=== PATIENT | female | born 1965 | race Caucasian/White ===

== ENCOUNTER 2021-10-15 18:11 | Emergency (ER) | payer OTHER, SELFPAY ==
[2021-10-15 18:32] VITALS: BP 135/90; PULSE 71; RESP 18; TEMP 36.2; O2SAT 100; BMI 37.3
--- NOTE | 2021-10-15 18:39 | ED.ABDPAIN ---
HPI - Abdominal Pain General Chief Complaint: Abdominal Pain Stated Complaint: Thinks Hernia, Near Naval Time Seen by Provider: 10/15/21 18:28 Source: patient Mode of arrival: Ambulatory Limitations: no limitations History of Present Illness HPI narrative: This is a 56-year-old female comes emergency department with complaint of abdominal pain. Patient states last several days she has had pain just to the right midline not lower and not upper. She states she noticed while palpating over the umbilical area that she had a lump and it was painful. She has not had fevers. No nausea or vomiting. No GI issues. She has had normal bowel movements, no issues with diarrhea constipation. Normal flatus. Normal urinary symptoms. She has had a gastric bypass, tubal ligation, with prior laparoscopic surgery. She is allergic to NSAIDs and has anaphylaxis. She takes omeprazole daily for Cardenas's esophagitis. Related Data Previous Rx's Medication Instructions Recorded benzonatate 100 mg capsule 100 mg PO QID PRN #10 cap 10/15/21 hydrocodone 5 mg-acetaminophen 325 1 tab PO Q6H PRN #10 tab 10/15/21 mg tablet Allergies Allergy/AdvReac Type Severity Reaction Status Date / Time NSAIDS (Non-Steroidal Allergy Verified 10/15/21 18:31 Anti-Inflamma Review of Systems Review of Systems ROS Unobtainable: All systems reviewed & are unremarkable except as noted in HPI and below Patient History Social History Smoking Status: Never smoker Smoking Status: Never smoker alcohol intake frequency: holidays/special occasions only Substance Use Type: does not use Exam Narrative Exam Narrative: GENERAL: Alert and oriented x three, well-nourished female mild distress. HEENT: Head normocephalic, atraumatic, EOMI, pupils reactive, face symmetric, moist mucous membranes NECK: Supple, full range of motion CARDIOVASCULAR: Regular rate and rhythm without murmurs, rubs or gallops. RESPIRATORY: Breath sounds equal bilaterally, no wheezes rales or rhonchi. ABDOMEN: Soft, mild tenderness right mid, patient has a small hernia that is not reducible at the 3 o'clock position. It is soft mildly tender to touch. Normoactive bowel sounds all 4 quadrants. No guarding or rebound, rigidity, no mass : No CVA tenderness EXTREMITIES: Normal range of motion, no clubbing or edema. Neurovascularly intact NEUROLOGICAL: Cranial nerves II through XII grossly intact. Moving all extremities SKIN: Warm, dry, no petechiae, no rashes or lesions. Initial Vital Signs Initial Vital Signs: Vital Signs Temperature 97.2 F L 10/15/21 18:32 Pulse Rate 71 10/15/21 18:32 Respiratory Rate 18 10/15/21 18:32 Blood Pressure 135/90 10/15/21 18:32 Pulse Oximetry 100 10/15/21 18:32 Course Orders Ordered: ED Orders 10/15/21 18:54 XR abdomen min 2V Stat Vital Signs Vital signs: Vital Signs - 8 hr 10/15/21 18:32 Temperature 97.2 F L Pulse Rate 71 Respiratory Rate 18 Blood Pressure 135/90 Pulse Oximetry 100 MDM - Abdominal Pain Imaging Data Abdominal x-ray: Radiologist's Impression: Launch?[address] [address] XRay Report Signed Patient: Tori Mendoza MR#: [id number] : 1965 Acct:[id number] Age/Sex: 56 / F Date of Service: 10/15/21 Loc: ED Accession Number: [id number] ?? Procedure: XR abdomen min 2V Ordering Provider: Shalini Cruz D.O. PROCEDURE:? XR ABDOMEN MIN 2V ? INDICATIONS:? concern for umbilical hernia ? TECHNIQUE:? 2 views of the abdomen were acquired.? ? COMPARISON:? None. ? FINDINGS:? Surgical changes and devices:? None.? ? Bowel:? No pneumoperitoneum.? Nonspecific bowel gas pattern.? ? Soft tissues:? No masses; visualized solid organ contours appear normal in size.? No suspicious abdominal calcifications.? ? Bones:? No suspicious bony abnormalities.? ? IMPRESSION:? No significant abnormality. ? ? Dictated by: Joshua Lopez M.D. on 10/15/2021 at 19:26 ? ? Approved by: Joshua Lopez M.D. on 10/15/2021 at 19:27?? [facility] Narrative Medical decision making narrative: After discussed with patient attempted reduction here in the department unable to reduce easily. With patient having symptoms for several days we discussed obtaining, labs and CT imaging workup verses x-ray and if no signs of obstruction follow-up with General surgery for repair. Patient elects the latter. Suspected that she has likely hernia with fat and less likely to have bowel as she has not had any other GI symptoms, patient is aware of risk vs benefits. X-Ray imaging does not show any obstructive pattern with air through to the rectum. Patient and I discussed strict return precautions. Discharge Plan Departure Patient Disposition: Home Clinical Impression: Abdominal hernia Instructions: Abdominal Hernia Activity Restrictions/Additional Instructions: Follow up with General surgery, call first thing Monday morning to set up an appointment. You do have hernia just to the right of your umbilical region. You may take Franklin 1 tablet every 6 hours as needed for pain. This medication can make you sleepy do not drive, perform hazardous activities or make any major decisions while taking it. This medication will make you constipated please take a stool softener once to twice daily until stools are soft and regular. Prescription sent to [facility] in [place]. Please return for worsening abdominal pain, fevers greater 100.4 F, vomiting, for having constipation, not having bowel movements, no flatus or other new or concerning symptoms. Prescriptions: New hydrocodone-acetaminophen 5-325 mg tablet 1 tab PO Q6H PRN (Reason: pain) Qty: 10 0RF benzonatate 100 mg capsule 100 mg PO QID PRN (Reason: cough) Qty: 10 0RF Referrals: Cami Varela ARNP [Primary Care Provider] - Juan Fajardo MD [Physician] -
--- NOTE | 2021-10-15 18:54 | DI.RAD.S_ITS ---
PROCEDURE: XR ABDOMEN MIN 2V INDICATIONS: concern for umbilical hernia TECHNIQUE: 2 views of the abdomen were acquired. COMPARISON: None. FINDINGS: Surgical changes and devices: None. Bowel: No pneumoperitoneum. Nonspecific bowel gas pattern. Soft tissues: No masses; visualized solid organ contours appear normal in size. No suspicious abdominal calcifications. Bones: No suspicious bony abnormalities. IMPRESSION: No significant abnormality. Dictated by: Joshua Lopez M.D. on 10/15/2021 at 19:26 Approved by: Joshua Lopez M.D. on 10/15/2021 at 19:27
== END 2021-10-15 19:51 | disposition home or self-care (01) ==
PROVIDERS: Emergency Provider Emergency Medicine; PCP Nurse Practitioner
DX: K46.9 Unspecified abdominal hernia without obstruction or gangrene (principal); Z88.6 Allergy status to analgesic agent
CPT/HCPCS: 74019; 99283

== ENCOUNTER 2022-05-27 07:41 | Emergency (ER) | payer OTHER, SELFPAY ==
[2022-05-27 07:52] VITALS: BP 129/79; PULSE 67; RESP 20; TEMP 36.5; O2SAT 97; BMI 37.1
--- NOTE | 2022-05-27 07:57 | DI.RAD.S_ITS ---
PROCEDURE: XR KNEE LT 3V INDICATIONS: pain TECHNIQUE: 3 views of the knee were acquired. COMPARISON: None. FINDINGS: Bones: No fractures or dislocations. No suspicious bony lesions. Mild medial and lateral compartment narrowing and patellofemoral compartment spurring. Soft tissues: No joint effusion. No suspicious soft tissue calcifications. IMPRESSION: 1. No acute osseous abnormality. 2. Degenerative changes of the knee. Dictated by: Papito Jackson M.D. on 05/27/2022 at 8:20 Approved by: Papito Jackson M.D. on 05/27/2022 at 8:23
--- NOTE | 2022-05-27 07:57 | DI.RAD.S_ITS ---
PROCEDURE: XR ANKLE LT MIN 3V INDICATIONS: pain TECHNIQUE: 3 views of the ankle were acquired. COMPARISON: None. FINDINGS: Bones: No definite fractures or dislocations. Ankle mortise is normally aligned. Degenerative changes of the talonavicular joint. A plantar calcaneal spur is present. Soft tissues: A tibiotalar joint effusion is present. Achilles tendon appears normal. IMPRESSION: 1. No acute fracture visualized. If symptoms persist, follow-up radiographs and/or CT may be helpful for further evaluation. 2. A tibiotalar joint effusion is present. Dictated by: Papito Jackson M.D. on 05/27/2022 at 8:23 Approved by: Papito Jackson M.D. on 05/27/2022 at 8:30
--- NOTE | 2022-05-27 09:53 | ED_ITS ---
HPI - Extremity Injury (Lower) General Chief Complaint: Extremity Injury, Lower Stated Complaint: left ankle pain Time Seen by Provider: 05/27/22 09:51 Source: patient Mode of arrival: Family Vehicle History of Present Illness HPI Narrative: 56-year-old female with complaint of left ankle pain and knee pain. Patient states she helped friends pack and move about a week ago she started developing discomfort in her left ankle particularly on the medial side under the medial malleolus and a little bit over the talus. She has not had any significant swelling, no bruising or ecchymosis. She does not recall any specific trauma but she states she typically isn't quite that active. She is had a little bit of left knee discomfort. She has chronic knee issues after an injury remotely. She has not had any swelling, skin changes. No weakness or numbness in her extremities. She is occasionally had some discomfort radiating down her from her back but not persistently. She denies any other symptoms. No fevers or chills. No cough, cold or congestion, no chest pain or shortness of breath. No GI or urinary symptoms. Patient states that she is allergic to ibuprofen she does not tolerate NSAIDs. She is on medication for migraine. She does tolerate Tylenol. Patient has not been as active at work she sits at a desk normally. She came to be evaluated it has been persisting. Related Data Previous Rx's Medication Instructions Recorded benzonatate 100 mg capsule 100 mg PO QID PRN cough #10 caps 10/15/21 hydrocodone 5 mg-acetaminophen 325 1 tab PO Q6H PRN pain #10 tabs 10/15/21 mg tablet Allergies Allergy/AdvReac Type Severity Reaction Status Date / Time NSAIDS (Non-Steroidal Allergy Anaphylaxis Verified 05/27/22 07:52 Anti-Inflamma Review of Systems Review of Systems ROS Unobtainable: All systems reviewed & are unremarkable except as noted in HPI and below Patient History Social History Smoking Status: Never smoker Smoking Status: Never smoker alcohol intake frequency: holidays/special occasions only Substance Use Type: does not use Exam Narrative Exam Narrative: GENERAL: Alert and oriented x three, obese female in mild distress. HEENT: Head normocephalic, atraumatic, EOMI, pupils reactive, face symmetric, moist mucous membranes NECK: Supple, full range of motion ABDOMEN: Soft, nontender. Normoactive bowel sounds all 4 quadrants. No guarding or rebound, rigidity, no mass BACK: No cervical, thoracic or lumbar vertebral point tenderness. Patient has normal range of motion. Patient's gait is [antalgic/normal]. Rectal exam is deferred. Muscle strength is 5/5 in lower extremities,Dorsalis pedis and tibialis pulses are 2+ and lower extremities. Sensation is intact in the lower extremities. Patient does not have any distinct bony tenderness. No joint laxity at the knee or ankle. No ecchymosis, no swelling, erythema or other skin changes. : No CVA tenderness EXTREMITIES: Normal range of motion. Neurovascularly intact NEUROLOGICAL: Cranial nerves II through XII grossly intact. Moving all extremities SKIN: Warm, dry, no petechiae, no rashes or lesions. Initial Vital Signs Initial Vital Signs: Vital Signs Temperature 97.7 F 05/27/22 07:52 Pulse Rate 67 05/27/22 07:52 Respiratory Rate 20 05/27/22 07:52 Blood Pressure 129/79 05/27/22 07:52 Pulse Oximetry 97 05/27/22 07:52 Oxygen Delivery Method 05/27/22 07:52 Course Orders Ordered: ED Orders 05/27/22 07:57 XR ankle LT min 3V Stat XR knee LT 3V Stat Vital Signs Vital signs: Vital Signs - 8 hr 05/27/22 07:52 Temperature 97.7 F Pulse Rate 67 Respiratory Rate 20 Blood Pressure 129/79 Pulse Oximetry 97 Oxygen Delivery Method Room Air MDM - Extremity Injury (Lower) Imaging Data Extremity x-ray #1: Radiologist's Impression: Close Knee X-Ray (Signed) Papito Jackson - 05/27/22 Ankle X-Ray (Signed) Papito Jackson - 05/27/22 Abdomen X-Ray (Signed) Joshua Lopez - 10/15/21 Launch?[address] [address] XRay Report Signed Patient: Tori Mendoza MR#: [id number] : 1965 Acct:[id number] Age/Sex: 56 / F Date of Service: 05/27/22 Loc: ED Accession Number: [id number] ?? Procedure: XR knee LT 3V Ordering Provider: Shalini Cruz D.O. PROCEDURE:? XR KNEE LT 3V ? INDICATIONS:? pain ? TECHNIQUE:? 3 views of the knee were acquired.? ? COMPARISON:? None. ? FINDINGS:? ? Bones:? No fractures or dislocations.? No suspicious bony lesions.? Mild medial and lateral compartment narrowing and patellofemoral compartment spurring. ? Soft tissues:? No joint effusion.? No suspicious soft tissue calcifications.? ? ? IMPRESSION:? 1.? No acute osseous abnormality. 2. Degenerative changes of the knee.? ? ? Dictated by: Papito Jackson M.D. on 05/27/2022 at 8:20 ? ? Approved by: Papito Jackson M.D. on 05/27/2022 at 8:23?? Extremity x-ray #2: Radiologist's Impression: Close Knee X-Ray (Signed) Papito Jackson - 05/27/22 Ankle X-Ray (Signed) Papito Jackson - 05/27/22 Abdomen X-Ray (Signed) Joshua Lopez - 10/15/21 Launch?[place] [address] XRay Report Signed Patient: Tori Mendoza MR#: [id number] : 1965 Acct:[id number] Age/Sex: 56 / F Date of Service: 05/27/22 Loc: Accession Number: [id number] ?? Procedure: XR ankle LT min 3V Ordering Provider: Shalini Cruz D.O. PROCEDURE:? XR ANKLE LT MIN 3V ? INDICATIONS:? pain ? TECHNIQUE:? 3 views of the ankle were acquired.? ? COMPARISON:? None. ? FINDINGS:? ? Bones:? No definite fractures or dislocations.? Ankle mortise is normally aligned.? Degenerative changes of the talonavicular joint.? A plantar calcaneal spur is present. ? Soft tissues:? A tibiotalar joint effusion is present.? Achilles tendon appears normal.? ? ? IMPRESSION:? 1. No acute fracture visualized.? If symptoms persist, follow-up radiographs and/or CT may be helpful for further evaluation. 2. A tibiotalar joint effusion is present.? Dictated by: Papito Jackson M.D. on 05/27/2022 at 8:23 ? ? Approved by: Papito Jackson M.D. on 05/27/2022 at 8:30?? MDM Narrative Medical decision making narrative: This is a 56-year-old female who presents with complaint of left ankle pain and mild left knee pain. Patient does not have any obvious changes examination she describes discomfort wrapping around the medial malleolus consistent more with a ligamentous injury. No obvious swelling, ecchymosis, erythema or changes consistent with infection her major traumatic injury. Knee x-ray shows no acute change, ankle x-ray shows some talotibial effusion. Suspect patient has irritated the area secondary to repetitive use last week. She does not tolerate NSAIDs plan for Tylenol, Sen wrap she weight bears without major issue. Patient feels comfortable with this plan. Discharge Plan Departure Patient Disposition: Home Clinical Impression: Ankle sprain and strain, Knee pain, left Instructions: Ankle Sprain Activity Restrictions/Additional Instructions: Your imaging today shows a small amount of effusion at the tibiotalar joint. You may continue with Tylenol up to a 1000 mg every 6 hours as needed for pain. Splint Care: Keep splint clean and dry. Elevated affected body part to decrease swelling. OK to use ice pack on the affected body part. Use for 15-20 minutes each time, for 5-6x per day. If you develop worsening pain, numbness, tingling, discoloration of the affected body part, loosen the SEN wrap, and either see your doctor for an urgent re-assessment, or return to the Emergency Department. Return to the Emergency Department for any new or worsening symptoms. Prescriptions: No Action hydrocodone-acetaminophen 5-325 mg tablet 1 tab PO Q6H PRN (Reason: pain) Qty: 10 0RF benzonatate 100 mg capsule 100 mg PO QID PRN (Reason: cough) Qty: 10 0RF Referrals: Cami Varela ARNP [Primary Care Provider] - Stand Alone Forms: Work Release Note Visit Report Forms: Patient Portal/API
== END 2022-05-27 10:23 | disposition home or self-care (01) ==
PROVIDERS: Emergency Provider Emergency Medicine; PCP Nurse Practitioner
DX: S93.402A Sprain of unspecified ligament of left ankle, initial encounter (principal); S96.912A Strain of unspecified muscle and tendon at ankle and foot level, left foot, initial encounter; M25.562 Pain in left knee
CPT/HCPCS: 73562; 73610; 99283

== ENCOUNTER 2023-01-30 19:04 | Emergency (ER) | payer OTHER, SELFPAY ==
[2023-01-30 19:16] VITALS: BP 133/82; PULSE 87; RESP 18; TEMP 38.3; O2SAT 96; BMI 39.6
--- NOTE | 2023-01-30 19:20 | DI.RAD.S_ITS ---
PROCEDURE: XR CHEST 2V INDICATIONS: cough, fever TECHNIQUE: 2 views of the chest were acquired. COMPARISON: None. FINDINGS: Surgical changes and devices: None. Lungs and pleura: Lungs are clear. No pleural effusions or pneumothorax. Mediastinum: Mediastinal contours are normal. Heart size is normal. Bones and chest wall: No suspicious bony abnormalities. Soft tissues appear unremarkable. IMPRESSION: 1. No acute cardiopulmonary disease. Dictated by: Braden Flaherty M.D. on 01/30/2023 at 20:29 Approved by: Braden Flaherty M.D. on 01/30/2023 at 20:29
[2023-01-30 20:40] LABS: Adenovirus Not Detected (Not Detect); B. parapertussis Not Detected (Not Detecte); Bordetella pertussis Not Detected (Not Detecte); Chlamydophila pneumoniae Not Detected (Not Detect); Coronavirus 229E Not Detected (Not Detect); Coronavirus HKU1 Not Detected (Not Detect); Coronavirus NL 63 Not Detected (Not Detect); Coronavirus OC43 Not Detected (Not Detect); Human Metapneumovirus Detected (Not Detect); Human Rhinovirus/Enterovirus Not Detected (Not Detect); Influenza A Not Detected (Not Detect); Influenza B Not Detected (Not Detect); Mycoplasma pneumoniae Not Detected (Not Detect); Parainfluenza Virus 1 Not Detected (Not Detect); Parainfluenza Virus 2 Not Detected (Not Detect); Parainfluenza Virus 3 Not Detected (Not Detect); Parainfluenza Virus 4 Not Detected (Not Detect); Respiratory Syncytial Virus Not Detected (Not Detect); SARS- CoV-2 Not Detected (Not Detecte)
--- NOTE | 2023-01-30 21:30 | PC.NURSE ---
SIMONIZER consult ordered: Pt requires assistance w/ mental health provider and PCP.
[2023-01-30] MEDS: ACETAMINOPHEN/CODEINE SOLN 5 ML SOLUTION PO (21:35)
[2023-01-30 21:44] VITALS: BP 130/80; PULSE 88; RESP 16; TEMP 38.3; O2SAT 99
--- NOTE | 2023-02-01 17:29 | ED_ITS ---
HPI - URI/Sore Throat General Chief Complaint: Upper Respiratory Symptoms Stated Complaint: cough, fever Time Seen by Provider: 01/30/23 19:20 Source: patient Mode of arrival: Ambulatory History of Present Illness HPI Narrative: 57-year-old female nonsmoker presents with various upper respiratory symptoms over the past few days including runny nose, nasal congestion and cough. The cough is nonproductive. She does feel some wheezing and states that with deep breath she does occasionally cough. She denies any production of sputum or blood. She has no chest pain, nausea or vomiting. She does state that her coughing is vigorous and feels like it is pulling at a hernia surgery that was repaired in the fall. Related Data Previous Rx's Medication Instructions Recorded benzonatate 100 mg capsule 100 mg PO QID PRN cough #10 caps 10/15/21 hydrocodone 5 mg-acetaminophen 325 1 tab PO Q6H PRN pain #10 tabs 10/15/21 mg tablet benzonatate 200 mg capsule 200 mg PO BID PRN cough #20 caps 01/30/23 Allergies Allergy/AdvReac Type Severity Reaction Status Date / Time NSAIDS (Non-Steroidal Allergy Anaphylaxis Verified 05/27/22 07:52 Anti-Inflamma Review of Systems Review of Systems Narrative: GENERAL: See HPI HEENT: See HPI RESPIRATORY: See HPI CARDIOVASCULAR: Denies chest pain, palpitations, orthopnea, edema, GASTROINTESTINAL: Denies nausea, vomiting, abdominal pain, diarrhea, constipation, melena. : Denies dysuria, frequency, incontinence, hematuria, urinary retention. MUSCULOSKELETAL: denies weakness, joint pain, or bony pain SKIN: Denies rash, skin lesions, or other NEUROLOGIC: Denies weakness, headache, numbness, change in speech, confusion, seizures, incoordination. PSYCHIATRIC: No concerning psychosocial issues. 12 point review of systems is negative except for those stated above Patient History Social History Smoking Status: Never smoker Smoking Status: Never smoker alcohol intake frequency: holidays/special occasions only Substance Use Type: does not use Exam Narrative Exam Narrative: GENERAL: [57] year old patient appears stated age. Well-developed patient, in mild distress. HEAD: Atraumatic. Normocephalic. EYES: Pupils equal round and reactive. Extraocular motions intact. No scleral icterus. No injection or drainage. ENT: Clear nasal drainage bilaterally, minimal posterior pharyngeal drainage. Throat without erythema, tonsillar hypertrophy or exudate. Airway patent. NECK: Trachea midline. Non tender CARDIOVASCULAR: Regular rate and rhythm without murmurs, gallops, or rubs. RESPIRATORY: Clear to auscultation. Breath sounds equal bilaterally. No wheezes, rales, or rhonchi. GASTROINTESTINAL: Abdomen soft, non-tender, nondistended. EXTREMITIES: No edema or joint tenderness. BACK: Nontender without deformity or crepitance. No flank tenderness. NEURO: AOx3. SKIN: No rash or erythema of visible areas Initial Vital Signs Initial Vital Signs: Vital Signs Temperature 100.9 F H 01/30/23 19:16 Pulse Rate 87 01/30/23 19:16 Respiratory Rate 18 01/30/23 19:16 Blood Pressure 133/82 01/30/23 19:16 Pulse Oximetry 96 01/30/23 19:16 Oxygen Delivery Method Room Air 01/30/23 19:16 Course Orders Ordered: Discontinued Medications Acetaminophen/Codeine Phosphate (Acetaminophen/Codeine Soln 5 Ml Solution) 5 ml PO NOW ONE Stop: 01/30/23 21:20 Last Admin: 01/30/23 21:35 Dose: 5 ml Documented By: OMAYRA MDM - URI/Sore Throat Lab Data Labs: Lab Results 01/30/23 Range/Units 19:29 Chlamy pneumoniae PCR Not detected (Not Detect) Adenovirus (PCR) Not detected (Not Detect) B. pertussis DNA (PCR) Not detected (Not Detecte) B.parapertussis DNA PCR Not detected (Not Detecte) Coronavirus OC43 (PCR) Not detected (Not Detect) Coronavirus HKU1 (PCR) Not detected (Not Detect) Coronavirus 229E (PCR) Not detected (Not Detect) SARS-CoV-2 (PCR) Not detected (Not Detecte) Coronavirus NL63 (PCR) Not detected (Not Detect) Human Metapneumovir PCR Detected H (Not Detect) Influenza Type A (PCR) Not detected (Not Detect) Influenza Type B (PCR) Not detected (Not Detect) M. pneumoniae (PCR) Not detected (Not Detect) Parainfluenza 1 (PCR) Not detected (Not Detect) Parainfluenza 2 (PCR) Not detected (Not Detect) Parainfluenza 3 (PCR) Not detected (Not Detect) Parainfluenza 4 (PCR) Not detected (Not Detect) RSV (PCR) Not detected (Not Detect) Entero/Rhino (PCR) Not detected (Not Detect) MDM Narrative Medical decision making narrative: [57] year old patient presents with upper respiratory symptoms Multiple etiologies for patient's symptoms considered including, but not limited to: [COVID, flu, RSV, other viral source, bacterial pneumonia versus other] Prior Charts reviewed in our EMR Primary Historian: patient Labs reviewed and interpreted by myself: Respiratory panel positive for human metapneumovirus. Imaging reviewed: No acute process Patient's symptoms improved over duration of stay with above-stated therapies. Patient without any noted significant work of breathing, no hypoxemia. Chest x- ray clear. No indication for antibiotics. Return precautions given Findings and discharge diagnosis discussed with patient/family followed by verbalization of understanding Return precautions discussed with patient/family whom verbalize understanding of diagnosis and plan Discharge Plan Departure Patient Disposition: Home Clinical Impression: Human metapneumovirus pneumonia Instructions: Human Metapneumovirus Infection Activity Restrictions/Additional Instructions: *You have been diagnosed with [viral were unremarkable. upper respiratory symptoms associated with human metapneumovirus. Otherwise your respiratory panel and chest x-ray] *What to do: *Please continue to take your regular medications as directed. [x ] New medication prescriptions sent to your pharmacy: [[facility] ] [ ] New medication written as a paper prescription [ ] No new medications given *Please follow up with your primary care provider in 2-3 days, call for an appointment. Let them know you were seen in the Emergency Department and that we ask that you be seen in follow up. We will electronically transmit a record of today's note if your PCP is in our system * as we discussed I have included the contact information for [facility], please call them and let them know that you were seen in the emergency department and we would like you seen in follow-up regarding your sinus problems. *Return to Emergency Department if you should have any new, worsening or co ncerning symptoms, such as [fever greater than 101 F, shaking chills, worsening pain, persistent vomiting or other bothersome symptoms] Prescriptions: New benzonatate 200 mg capsule 200 mg PO BID PRN (Reason: cough) Qty: 20 0RF No Action hydrocodone-acetaminophen 5-325 mg tablet 1 tab PO Q6H PRN (Reason: pain) Qty: 10 0RF benzonatate 100 mg capsule 100 mg PO QID PRN (Reason: cough) Qty: 10 0RF Referrals: Cami Varela ARNP [Primary Care Provider] - Narayan Yancey MD [Physician] - Stand Alone Forms: Patient Portal/API
== END 2023-01-30 21:45 | disposition home or self-care (01) ==
PROVIDERS: Emergency Provider Emergency Medicine; PCP Nurse Practitioner
DX: J12.3 Human metapneumovirus pneumonia (principal); Z20.822 Contact with and (suspected) exposure to COVID-19
CPT/HCPCS: 71046; 87633; 99283

== ENCOUNTER → 2024-10-20 10:02 | Outpatient (CLI) | payer OTHER, SELFPAY | PROVIDERS: PCP Nurse Practitioner; Visit Provider Physician Assistant Medical | DX: R10.9 Unspecified abdominal pain (principal) | CPT/HCPCS: 87086 ==

== ENCOUNTER → 2024-10-20 10:35 | Outpatient (CLI) | payer OTHER, SELFPAY ==
--- NOTE | 2024-10-20 10:41 | DI.RAD.S_ITS ---
PROCEDURE: XR CHEST 2V INDICATIONS: mid low back pain, no trauma, chronic cough. TECHNIQUE: 2 views of the chest were acquired. COMPARISON: [facility], CR, XR CHEST 2V, 01/30/2023, 19:36. FINDINGS: Surgical changes and devices: None. Lungs and pleura: Lungs are clear. No pleural effusions or pneumothorax. Mediastinum: Mediastinal contours are normal. Heart size is normal. Bones and chest wall: No suspicious bony abnormalities. Soft tissues appear unremarkable. IMPRESSION: No acute cardiopulmonary abnormality is seen. Approved by: Opal Azul M.D.,Ph.D. on 10/20/2024 at 11:35
== END ==
LOC: RAD 10:40
PROVIDERS: PCP Nurse Practitioner; Referring Provider Physician Assistant Medical; Visit Provider Physician Assistant Medical
DX: M54.9 Dorsalgia, unspecified (principal); R10.9 Unspecified abdominal pain
CPT/HCPCS: 71046; 87086

== ENCOUNTER 2025-05-06 14:34 | Emergency (ER) | payer OTHER, SELFPAY ==
[2025-05-06] VITALS (13 sets, daily range): BP systolic 114–157; BP diastolic 58–82; PULSE 51–72; RESP 9–21; TEMP 36.6; O2SAT 94–100; BMI 36.7
--- NOTE | 2025-05-06 15:12 | DI.CT.S_ITS ---
PROCEDURE: CT HEAD/BRAIN WO CON INDICATIONS: severe and acute onset vertigo TECHNIQUE: Noncontrast 4.5 mm thick angled axial sections acquired from the foramen magnum to the vertex, with coronal and sagittal reformats. For radiation dose reduction, the following was used: automated exposure control, adjustment of mA and/or kV according to patient size. COMPARISON: None. FINDINGS: Image quality: Diagnostic. CSF spaces: Basal cisterns are patent. No extra-axial fluid collections. Ventricles are normal in size and shape. Brain: No midline shift. No intracranial mass effect or hemorrhage. Aaron- white matter interface is normal. Skull and face: Calvarium and visualized facial bones are intact, without suspicious lesions. Sinuses: Mild mucosal thickening in the maxillary sinuses. The remaining paranasal sinuses and the mastoid air cells are clear. IMPRESSION: No acute intracranial pathology. Approved by: Papito Lees M.D. on 05/06/2025 at 16:04
--- NOTE | 2025-05-06 15:12 | DI.CT.S_ITS ---
PROCEDURE: CT ANGIO HEAD AND NECK INDICATIONS: severe acute vertigo, ? stroke TECHNIQUE: After the administration of intravenous contrast, 1 mm thick sections acquired from the aortic arch through the [place] of [place]. 3-dimensional jcdsvea-jcberxvci-ireucwqamb (MIP) and/or volume rendering reformats were acquired of the central intracranial vasculature and neck separately. For radiation dose reduction, the following was used: automated exposure control, adjustment of mA and/or kV according to patient size. COMPARISON: None. FINDINGS: Image quality: Diagnostic. Cerebral CT Angiogram: Internal carotid arteries: No acute findings. Intracranial ICA are patent with no significant stenosis. No occlusion. No aneurysm. Anterior cerebral arteries: Unremarkable. No significant stenosis. No occlusion. No aneurysm. Middle cerebral arteries: Unremarkable. No significant stenosis. No occlusion. No aneurysm. Posterior cerebral arteries: Unremarkable. No significant stenosis. No occlusion. No aneurysm. Basilar artery: Unremarkable. No significant stenosis. No occlusion. No aneurysm. Vertebral arteries: Unremarkable as visualized. Dural venous sinuses: Unremarkable given phase of enhancement. Other: Arterial phase appearance of the brain parenchyma is unremarkable. Neck CT Angiogram: Internal carotid arteries: Unremarkable. No significant stenosis. No dissection or occlusion. Common carotid arteries: Unremarkable. No significant stenosis. No dissection or occlusion. External carotid arteries: Unremarkable. No occlusion. Vertebral arteries: Unremarkable. No significant stenosis. No dissection or occlusion. Aortic Arch and Mediastinum: Partially visualized aortic arch unremarkable without evidence of aneurysm. Origins of the great vessels unremarkable. Other: Arterial phase soft tissues of the neck and chest are unremarkable. IMPRESSION: No significant intracranial arterial abnormality is seen. No significant abnormality is seen within the arteries of the neck. Any quantitative measurements of stenosis were performed using NASCET criteria. Approved by: Papito Lees M.D. on 05/06/2025 at 16:07
[2025-05-06 15:22] LABS: Add Manual Diff / Slide Review NO; Hematocrit 43.5 % (36-46); Hemoglobin 15.2 g/dL (12.0-16.0); Lymphocytes Absolute Auto 1200 /uL (1100-4500); Mean Corpuscular HGB Conc 34.8 % (30-36); Mean Corpuscular Hemoglobin 32.0 PG (26-34); Mean Corpuscular Volume 92.0 fL (80-100); Platelet Count 277 X10^3/uL (150-400)
[2025-05-06 15:33] LABS: Alanine Aminotransferase 27 IU/L (<35); Albumin 4.5 g/dL (3.5-5.0); Albumin Globulin Ratio 1.2 (1.0-2.8); Alkaline Phosphatase 118 U/L (38-126); Blood Urea Nitrogen 13 mg/dL (7-17); Calcium 9.8 mg/dL (8.4-10.2); Carbon Dioxide 22 mmol/L (22-32); Chloride 104 mmol/L (98-107); Estimated Glomerular Filt Rate > 60 mL/min (>60); Globulin 3.8 g/dL (1.7-4.1); Glucose 140 mg/dL (70-99); HEMOLYSIS 16 (0-50); Potassium 4.3 mmol/L (3.4-5.1); Sodium 135 mmol/L (137-145); Total Protein 8.3 g/dL (6.3-8.2)
[2025-05-06] MEDS: ONDANSETRON 4 MG/2 ML INJ IV (15:35)
[2025-05-06] MEDS: SODIUM CHLORIDE 0.9% 1,000 ML 1000 ML IV (15:40)
[2025-05-06 15:44] LABS: Troponin I < 0.012 ng/mL (0.01-0.034)
--- NOTE | 2025-05-06 17:20 | ED.GENADULT ---
HPI - General Adult General Chief complaint: Dizziness Stated complaint: Nauseated, and dizzy this am, getting worse Time Seen by Provider: 05/06/25 14:40 Source: patient Mode of arrival: Wheelchair History of Present Illness HPI narrative: 59-year-old woman with a history of migraine headache presents with dramatic episode of vertigo, coming in severe waves such that she can not walk when 1 of the waves passes through. She is nauseated but not overtly vomiting. She is not having any nystagmus does not complain of specific headache. No photosensitivity. No recent fevers, no abdominal pain, palpitations or lower extremity edema Related Data Home Medications ?Medication ?Instructions ?Recorded ?Confirmed sumatriptan succinate PO 10/20/24 10/20/24 Previous Rx's ?Medication ?Instructions ?Recorded benzonatate 100 mg capsule 100 mg PO QID PRN cough #10 caps 10/15/21 hydrocodone 5 mg-acetaminophen 325 1 tab PO Q6H PRN pain #10 tabs 10/15/21 mg tablet benzonatate 200 mg capsule 200 mg PO BID PRN cough #20 caps 01/30/23 Allergies Allergy/AdvReac Type Severity Reaction Status Date / Time NSAIDS (Non-Steroidal Allergy Anaphylaxis Verified 05/06/25 14:45 Anti-Inflamma Review of Systems Review of Systems Narrative: Pertinent positive and negative findings as per HPI Patient History Medical History (Updated 05/06/25 @ 18:24 by Diana Fletcher MD) Migraine Smoking Status: Unknown if ever smoked alcohol intake frequency: holidays/special occasions only Exam Initial Vital Signs Initial Vital Signs: Vital Signs Temperature 97.8 F 05/06/25 14:40 Pulse Rate 72 05/06/25 14:40 Respiratory Rate 17 05/06/25 14:40 Blood Pressure 157/82 H 05/06/25 14:40 Pulse Oximetry 100 05/06/25 14:40 Oxygen Delivery Method Room Air 05/06/25 14:40 General: Pale, obviously distressed with waves of severe vertigo that are not positional and not associated with nystagmus HEENT: Moist mucous membranes, normal sclera with reactive pupils, Respiratory: Lungs are clear to auscultation, no wheezing no rales no rhonchi. Full and symmetrical air movement Cardiac: Regular rate and rhythm no murmurs no bruits Abdomen: Soft, nontender, no rebound or guarding, no flank pain Skin: Warm and dry, no rashes Neurologic: Grossly neurologically intact with no obvious asymmetries or abnormalities Extremities: No trauma, well perfused Psych: Cooperative, appropriate insight and affect Course Orders Ordered: ED Orders 05/06/25 14:45 Complete Blood Count AUTO DIFF Stat Comprehensive Metabolic Panel Stat Troponin I Stat 05/06/25 15:12 CT angio head and neck Stat CT head/brain wo con Stat Discontinued Medications Diazepam (Diazepam 10 Mg/2 Ml Syringe) 2 mg IV NOW ONE Stop: 05/06/25 15:11 Last Admin: 05/06/25 15:37 Dose: 2 mg Documented By: TIP Sodium Chloride (Normal Saline 0.9%) 1,000 mls @ 1,000 mls/hr IV BOLUS ONE Stop: 05/06/25 16:09 Last Infusion: 05/06/25 16:49 Dose: Infused Documented By: Admin: 05/06/25 15:40 Dose: 1,000 mls/hr Documented By: TIP Ondansetron HCl (Ondansetron 4 Mg/2 Ml Inj) 4 mg IV NOW ONE Stop: 05/06/25 15:11 Last Admin: 05/06/25 15:35 Dose: 4 mg Documented By: TIP Vital Signs Vital signs: Vital Signs - 8 hr 05/06/25 14:40 Temperature 97.8 F Pulse Rate 72 Respiratory Rate 17 Blood Pressure 157/82 H Pulse Oximetry 100 Oxygen Delivery Method Room Air Medical Decision Making Lab Data 05/06/25 14:45 05/06/25 14:45 Labs: Lab Results 05/06/25 Range/Units 14:45 WBC 6.9 (4.5-11.0) X10^3/uL RBC 4.74 (4.0-5.2) X10^6/uL Hgb 15.2 (12.0-16.0) g/dL Hct 43.5 (36-46) % MCV 92.0 (80-100) fL MCH 32.0 (26-34) PG MCHC 34.8 (30-36) % RDW 13.6 (11.6-14.8) % Plt Count 277 (150-400) X10^3/uL Neut % (Auto) 72.4 (50-75) % Lymph % (Auto) 17.1 L (25-40) % [place] % (Auto) 8.3 (3-14) % Eos % (Auto) 1.5 L (2-4) % Baso % (Auto) 0.7 (0-2) % Neut # (Auto) 5000 (0976-7617) /uL Lymph # (Auto) 1200 (5656-7492) /uL [place] # (Auto) 600 (0-900) /uL Eos # (Auto) 100 (0-450) /uL Baso # (Auto) 0 (0-100) /uL Sodium 135 L (137-145) mmol/L Potassium 4.3 (3.4-5.1) mmol/L Chloride 104 (98-107) mmol/L Carbon Dioxide 22 (22-32) mmol/L BUN 13 (7-17) mg/dL Creatinine 0.79 (0.52-1.04) mg/dL Estimated GFR > 60 (>60) mL/min BUN/Creatinine Ratio 16.5 (6-22) Glucose 140 H (70-99) mg/dL Calcium 9.8 (8.4-10.2) mg/dL Total Bilirubin 0.9 (0.2-1.3) mg/dL AST 39 H (14-36) IU/L ALT 27 (<35) IU/L Alkaline Phosphatase 118 (38-126) U/L Troponin I < 0.012 (0.01-0.034) ng/mL Total Protein 8.3 H (6.3-8.2) g/dL Albumin 4.5 (3.5-5.0) g/dL Globulin 3.8 (1.7-4.1) g/dL Albumin/Globulin Ratio 1.2 (1.0-2.8) MDM Narrative Medical decision making narrative: CC: Severe onset acute vertigo Complicating co-morbidities: Migraine, no fevers, no trauma Data collected from: patient Differential considered: With the severity, stroke, ruptured aneurysm, herald bleed from an aneurysm, complex migraine, meningitis Exam documented above, pertinent findings include: Aside from the waves of vertigo without associated nystagmus exam is otherwise unremarkable Lab Test results independently reviewed as above. Pertinent findings: CBC is reassuring Chemistries are reassuring Imaging studies independently reviewed: CT of the head was unremarkable CT angio of the head and neck with concerns for stroke or bleeding was equally unremarkable Treatments: A L of fluid, 2 mg of diazepam and 4 mg of Zofran Discussion: With the somewhat modified migraine/vertigo treatment her symptoms have actually completely resolved. This makes me suspect that this was likely more complex migraine rather than any vertigo syndrome or stroke or stroke syndrome. Findings reviewed with her in detail including results of her CT scans. She has medication available for migraine and we discussed using that if she has similar episodes of vertigo to see if it influences the findings. At this point there was no indication for life-threatening abnormality, significant infection, reason for additional workup or hospitalization and she is safe for discharge Discharge Plan Departure Patient Disposition: Home Clinical Impression: Vertigo Migraine headache Qualifiers: Status migrainosus presence: without status migrainosus Intractability: not intractable Instructions: DI for Migraine Activity Restrictions/Additional Instructions: Thank you for coming in today With the severity and the acute onset of your symptoms I was concerned for stroke or bleeding inside your brain. The CT scan of your head and the CT angiogram, looking in all blood vessels, were both normal. You are given a L of fluid, 2 mg of diazepam and 4 mg of ondansetron. Somewhat modified migraine cocktail and can sometimes be helpful with acute vertigo. Typically it will completely alleviate the migraine but simply make the vertigo a little better. Because you are so improved I do suspect that this was a complex migraine with unusual presentation and no evidence of life-threatening tumors, masses or other concerns. If you find that you are getting worse or develop any new symptoms, please feel free to return to the emergency department for further evaluation. Prescriptions: No Action sumatriptan succinate PO hydrocodone-acetaminophen 5-325 mg tablet 1 tab PO Q6H PRN (Reason: pain) Qty: 10 0RF benzonatate 100 mg capsule 100 mg PO QID PRN (Reason: cough) Qty: 10 0RF benzonatate 200 mg capsule 200 mg PO BID PRN (Reason: cough) Qty: 20 0RF Referrals: Cami Varela ARNP [Primary Care Provider, Nursing] Stand Alone Forms: Patient Portal/API
== END 2025-05-06 18:42 | disposition home or self-care (01) ==
PROVIDERS: Emergency Provider Emergency Medicine; PCP Nurse Practitioner
DX: G43.909 Migraine, unspecified, not intractable, without status migrainosus (principal); R42 Dizziness and giddiness; R11.0 Nausea
CPT/HCPCS: 36415; 70450; 70496; 70498; 80053; 84484; 85025; 96361; 96374; 96375; 99284; J2405; J3360